=== PATIENT | female | born 1995 | race Caucasian/White ===

== ENCOUNTER 2020-07-30 20:11 | Inpatient (IN) | payer BC ==
[~2020-07-30] VITALS: Ht 144.8 cm; Wt 81.6 kg
[2020-07-30] MEDS ORDERED: NALOXONE HCL 2MG/2 ML SYRINGE ONE (20:29)
[2020-07-30] MEDS ORDERED: AMMONIA AROMATIC INHAL 0.33 ML AMP INH ONE (20:30)
[2020-07-30] MEDS ORDERED: NALOXONE HCL 2MG/2 ML SYRINGE IV ONE (20:30)
[2020-07-30 20:43] LABS: BASOPHILS # (AUTO) 0.1 (0.0-0.1); BASOPHILS % 0.2 % (0.0-1.0); EOSINOPHILS % 0.1 % (0.0-6.0); HEMATOCRIT 43.9 % (34.2-44.1); HEMOGLOBIN 13.1 g/dL (12.0-16.0); LYMPHOCYTES # (AUTO) 5.6 (1.0-3.2); LYMPHOCYTES % 14.7 % (18.0-39.1); MEAN CORPUSCULAR HEMOGLOBIN 26.4 pg (28-32); MEAN CORPUSCULAR HGB CONC 29.8 g/dL (31-35); MEAN CORPUSCULAR VOLUME 88.5 fL (81-99); MONOCYTES # (AUTO) 2.1 (0.2-0.8); MONOCYTES % 5.4 % (4.4-11.3); NEUTROPHILS # (AUTO) 28.3 (2.1-6.9); NEUTROPHILS % 73.7 % (38.7-80.0); PLATELET COUNT 562 x10e3/uL (140-360); RED BLOOD COUNT 4.96 x10e6/uL (3.6-5.1); RED CELL DISTRIBUTION WIDTH 15.4 % (11.7-14.4)
[2020-07-30 20:58] LABS: SALICYLATE < 5.0 mg/dL (0-30)
[2020-07-30] MEDS ORDERED: SODIUM CHLORIDE 0.9% 1000ML 1,000 ML IV ONE ×2 (21:00)
[2020-07-30] MEDS ORDERED: CEFTRIAXONE SOD 1 GM/50 ML BAG IV ONE (21:00)
[2020-07-30] MEDS ORDERED: PIPER-TAZ 3.375 GM 50 ML IV ONE (21:00)
[2020-07-30] MEDS ORDERED: SODIUM CHLORIDE 0.9% 1000ML 1,000 ML ONE (21:04)
[2020-07-30] MEDS ORDERED: PIPERACILLIN/TAZOBAC 3.375 GM in SODIUM CHLORIDE 0.9% 50ML 50 ML IV STA (21:04)
[2020-07-30] MEDS ORDERED: CEFTRIAXONE SOD 1 GM VIAL ONE (21:04)
[2020-07-30 21:06] LABS: AMPHETAMINES SCREEN,URINE POSITIVE (NEGATIVE); BENZODIAZEPINES SCREEN,URINE NEGATIVE (NEGATIVE); PHENCYCLIDINE SCREEN,URINE NEGATIVE (NEGATIVE)
[2020-07-30] MEDS ORDERED: PIPERACILLIN/TAZOBAC 3.375 GM VIAL ONE (21:08)
[2020-07-30 21:11] LABS: CLARITY,URINE CLOUDY (CLEAR); COLOR,URINE AMBER (YELLOW); KETONES,URINE NEGATIVE (NEGATIVE); LEUKOCYTE ESTERASE ,URINE NEGATIVE (NEGATIVE); NITRITE,URINE NEGATIVE (NEGATIVE); PROTEIN,URINE DIPSTICK >=300 (NEGATIVE); URINE UROBILINOGEN 0.2 mg/dL (0.2 - 1)
[2020-07-30 21:22] LABS: AMORPHOUS SEDIMENT,URINE MANY (FEW); BACTERIA,URINE MANY /HPF; EPITHELIAL CELLS,URINE MANY /LPF; HYALINE CASTS 0-1 (0-1); MUCUS,URINE MODERATE (RARE)
[2020-07-30 21:24] LABS: CREATINE KINASE MB 108.8 ng/mL (0-5.0)
[2020-07-30 21:29] LABS: ALBUMIN/GLOBULIN RATIO 0.9 (0.8-2.0); CALCIUM 9.3 mg/dL (8.4-10.2); CREATININE, SERUM 2.38 mg/dL (0.57-1.11)
[2020-07-30] MEDS ORDERED: SODIUM CHLORIDE 0.9% 500ML 500 ML IV ONE (21:45)
[2020-07-30] MEDS ORDERED: ASPIRIN 81 MG CHEW TAB PO STA (21:45)
[2020-07-30] MEDS ORDERED: SODIUM CHLORIDE 0.9% 1000ML 1,000 ML IV SCH (21:45)
[2020-07-30] MEDS ORDERED: ASPIRIN 300 MG SUPP PR STA (21:49)
[2020-07-30] MEDS ORDERED: LORAZEPAM INJ 2 MG/ML VIAL IV ONE (22:00)
[2020-07-30] MEDS ORDERED: ASPIRIN 300 MG SUPP PR ONE (22:00)
[2020-07-30] MEDS: ZIPRASIDONE 20 MG VIAL IM PRN (22:01)
[2020-07-30] MEDS ORDERED: ZIPRASIDONE 20 MG VIAL IM ONE (22:08)
[2020-07-30] MEDS ORDERED: LORAZEPAM INJ 2 MG/ML VIAL ONE (22:08)
[2020-07-30] MEDS: SODIUM CHLORIDE 0.9% 1000ML 1,000 ML IV SCH (23:40)
[2020-07-31] VITALS (25 sets, daily range): BP systolic 108–175; BP diastolic 79–118
[2020-07-31] MEDS ORDERED: PIPERACILLIN/TAZO 2.25 GM 50 ML IV SCH (01:00)
[2020-07-31] MEDS ORDERED: VANCOMYCIN 1GM/NS 250 ML 250 ML IV SCH (01:00)
[2020-07-31] MEDS ORDERED: VANCOMYCIN 1GM/NS 250 ML 250 ML ONE (01:09)
[2020-07-31] MEDS: PIPERACILLIN/TAZOBACTAM 2.25 GM in SODIUM CHLORIDE 0.9% 50ML 50 ML IV SCH ×2 (02:39→13:30)
[2020-07-31 05:43] LABS: BASOPHILS # (AUTO) 0.1 (0.0-0.1); BASOPHILS % 0.2 % (0.0-1.0); HEMATOCRIT 40.2 % (34.2-44.1); HEMOGLOBIN 12.7 g/dL (12.0-16.0); LYMPHOCYTES # (AUTO) 4.1 (1.0-3.2); LYMPHOCYTES % 14.3 % (18.0-39.1); MEAN CORPUSCULAR HEMOGLOBIN 26.5 pg (28-32); MEAN CORPUSCULAR HGB CONC 31.6 g/dL (31-35); MEAN CORPUSCULAR VOLUME 83.8 fL (81-99); MONOCYTES # (AUTO) 0.9 (0.2-0.8); MONOCYTES % 3.2 % (4.4-11.3); NEUTROPHILS # (AUTO) 23.1 (2.1-6.9); PLATELET COUNT 396 x10e3/uL (140-360)
[2020-07-31 06:14] LABS: ANION GAP 17.7 mmol/L (8-16); CALCIUM 7.6 mg/dL (8.4-10.2); CREATININE, SERUM 1.3 mg/dL (0.57-1.11); POTASSIUM 4.7 mmol/L (3.5-5.1)
[2020-07-31 07:39] LABS: ANISOCYTOSIS SLIGHT; LYMPHOCYTES % (MANUAL) 10 % (19-48); MONOCYTES % (MANUAL) 6 % (3.4-9.0); NEUTROPHILS % (MANUAL) 84 % (40-74); PLATELET ESTIMATE SLIGHTLY INCREASED; PLATELET MORPHOLOGY COMMENT FEW LARGE; RBC MORPHOLOGY COMMENT NORMAL
[2020-07-31] MEDS: SODIUM CHLORIDE 0.9% 1000ML 1,000 ML IV SCH ×3 (08:00→23:30)
[2020-07-31 08:18] LABS: CREATINE KINASE MB 743.9 ng/mL (0-5.0)
[2020-07-31] MEDS ORDERED: LORAZEPAM INJ 2 MG/ML VIAL IV PRN (09:00)
[2020-07-31] MEDS ORDERED: PROZAC40 MG PO (09:33)
[2020-07-31] MEDS ORDERED: METFORMIN HCL500 MG PO (09:33)
[2020-07-31] MEDS ORDERED: SUMATRIPTAN SUC25 MG PO (09:33)
[2020-07-31] MEDS ORDERED: HYDROXYZINE HCL50 MG (09:33)
[2020-07-31] MEDS ORDERED: NEURONTIN300 MG PO (09:33)
[2020-07-31] MEDS ORDERED: CRESTOR10 MG PO (09:33)
[2020-07-31] MEDS ORDERED: DEXTROSE 50% SYRINGE 50 ML IV PRN (09:45)
[2020-07-31] MEDS ORDERED: SODIUM CHLORIDE 0.9% 1000ML 1,000 ML IV ONE (09:45)
[2020-07-31] MEDS: ASPIRIN 81 MG ENTERIC COATED PO SCH (10:13)
[2020-07-31] MEDS: FAMOTIDINE 20 MG/2 ML VIAL IV SCH ×2 (10:13→17:48)
[2020-07-31] MEDS: INSULIN REGULAR, HUMAN 100 UNIT/1 ML 3ML VIAL SQ SCH ×3 (11:24→21:20)
[2020-07-31] MEDS: LORAZEPAM INJ 2 MG/ML VIAL IV PRN (13:41)
[2020-07-31 14:44] LABS: BASOPHILS # (AUTO) 0.1 (0.0-0.1); BASOPHILS % 0.3 % (0.0-1.0); EOSINOPHILS % 0.1 % (0.0-6.0); HEMATOCRIT 38.6 % (34.2-44.1); HEMOGLOBIN 12.1 g/dL (12.0-16.0); LYMPHOCYTES # (AUTO) 2.9 (1.0-3.2); LYMPHOCYTES % 15.2 % (18.0-39.1); MEAN CORPUSCULAR HEMOGLOBIN 26.3 pg (28-32); MEAN CORPUSCULAR HGB CONC 31.3 g/dL (31-35); MEAN CORPUSCULAR VOLUME 83.9 fL (81-99); MONOCYTES # (AUTO) 0.6 (0.2-0.8); MONOCYTES % 3.4 % (4.4-11.3); NEUTROPHILS # (AUTO) 15.1 (2.1-6.9); NEUTROPHILS % 80.3 % (38.7-80.0); PLATELET COUNT 384 x10e3/uL (140-360); RED CELL DISTRIBUTION WIDTH 15.3 % (11.7-14.4)
[2020-07-31 15:36] LABS: ANION GAP 15.7 mmol/L (8-16); BLOOD UREA NITROGEN 19 mg/dL (7-26); CARBON DIOXIDE 17 mmol/L (22-29); CHLORIDE 113 mmol/L (98-107); CREATININE, SERUM 0.94 mg/dL (0.57-1.11); POTASSIUM 3.7 mmol/L (3.5-5.1); SODIUM 142 mmol/L (136-145)
[2020-07-31 15:37] LABS: BUN/CREATININE RATIO 20 (6-25); CALCIUM 7.5 mg/dL (8.4-10.2); EST GLOMERULAR FILTRATION RATE > 60 ML/MIN (60-); GLUCOSE 109 mg/dL (74-118)
[2020-07-31 15:46] LABS: CREATINE KINASE MB 504.7 ng/mL (0-5.0)
[2020-07-31] MEDS: VANCOMYCIN 1GM/NS 250 ML 250 ML IV SCH (18:06)
[2020-07-31] MEDS: CEFEPIME 2 GM/NS 0.9% 100 ML 100 ML IV SCH (19:56)
[2020-07-31 22:27] LABS: CREATINE KINASE MB 223.4 ng/mL (0-5.0)
[2020-07-31 22:41] LABS: ANION GAP 13.7 mmol/L (8-16); BLOOD UREA NITROGEN 16 mg/dL (7-26); BUN/CREATININE RATIO 19 (6-25); CALCIUM 7.6 mg/dL (8.4-10.2); CARBON DIOXIDE 19 mmol/L (22-29); CHLORIDE 111 mmol/L (98-107); CREATININE, SERUM 0.84 mg/dL (0.57-1.11); EST GLOMERULAR FILTRATION RATE > 60 ML/MIN (60-); GLUCOSE 122 mg/dL (74-118); POTASSIUM 3.7 mmol/L (3.5-5.1); SODIUM 140 mmol/L (136-145)
[2020-07-31] MEDS: ZIPRASIDONE 20 MG VIAL IM PRN (23:08)
[2020-08-01] VITALS (24 sets, daily range): BP systolic 122–194; BP diastolic 60–141
[2020-08-01] MEDS: SODIUM CHLORIDE 0.9% 1000ML 1,000 ML IV SCH ×4 (02:25→21:03)
[2020-08-01] MEDS: LORAZEPAM INJ 2 MG/ML VIAL IV PRN ×2 (03:51→19:21)
[2020-08-01] MEDS: CEFEPIME 2 GM/NS 0.9% 100 ML 100 ML IV SCH ×3 (03:54→20:04)
[2020-08-01 04:42] LABS: BASOPHILS % 0.2 % (0.0-1.0); EOSINOPHILS # (AUTO) 0.2 (0.0-0.4); EOSINOPHILS % 0.9 % (0.0-6.0); HEMATOCRIT 34.9 % (34.2-44.1); HEMOGLOBIN 11.1 g/dL (12.0-16.0); LYMPHOCYTES # (AUTO) 3.7 (1.0-3.2); MEAN CORPUSCULAR HEMOGLOBIN 26.4 pg (28-32); MEAN CORPUSCULAR HGB CONC 31.8 g/dL (31-35); MEAN CORPUSCULAR VOLUME 83.1 fL (81-99); MONOCYTES # (AUTO) 0.7 (0.2-0.8); MONOCYTES % 3.7 % (4.4-11.3); NEUTROPHILS # (AUTO) 12.8 (2.1-6.9); NEUTROPHILS % 73.6 % (38.7-80.0); PLATELET COUNT 295 x10e3/uL (140-360); RED CELL DISTRIBUTION WIDTH 15.2 % (11.7-14.4)
[2020-08-01 05:13] LABS: ALANINE AMINOTRANSFERASE 1556 IU/L (0-55); ALBUMIN 2.6 g/dL (3.5-5.0); ALBUMIN/GLOBULIN RATIO 0.8 (0.8-2.0); ALKALINE PHOSPHATASE 88 IU/L (40-150); ANION GAP 15.5 mmol/L (8-16); BLOOD UREA NITROGEN 12 mg/dL (7-26); BUN/CREATININE RATIO 15 (6-25); CALCIUM 7.7 mg/dL (8.4-10.2); CARBON DIOXIDE 19 mmol/L (22-29); CHLORIDE 110 mmol/L (98-107); CREATININE, SERUM 0.78 mg/dL (0.57-1.11); EST GLOMERULAR FILTRATION RATE > 60 ML/MIN (60-); GLUCOSE 103 mg/dL (74-118); POTASSIUM 3.5 mmol/L (3.5-5.1); SODIUM 141 mmol/L (136-145)
[2020-08-01 05:35] LABS: MAGNESIUM 1.9 MG/DL (1.3-2.1); PHOSPHORUS 1.2 MG/DL (2.3-4.7)
[2020-08-01 05:42] LABS: THYROID STIMULATING HORMONE 0.244 uIU/mL (0.350-4.940)
[2020-08-01] MEDS: VANCOMYCIN 1GM/NS 250 ML 250 ML IV SCH ×2 (05:54→18:22)
[2020-08-01] MEDS: INSULIN REGULAR, HUMAN 100 UNIT/1 ML 3ML VIAL SQ SCH ×4 (07:30→20:01)
[2020-08-01] MEDS ORDERED: LABETALOL HCL 5 MG/ML 20ML VIAL IV ONE (09:00)
[2020-08-01] MEDS: ASPIRIN 81 MG ENTERIC COATED PO SCH (09:00)
[2020-08-01] MEDS: FAMOTIDINE 20 MG/2 ML VIAL IV SCH ×2 (09:31→18:15)
[2020-08-01] MEDS: HYDROMORPHONE 1MG/1ML INJ IV PRN ×2 (11:53→21:03)
[2020-08-01] MEDS ORDERED: DIPHENHYDRAMINE HCL INJ 50 MG/ML VIAL IV PRN (14:00)
[2020-08-01] MEDS ORDERED: DIPHENHYDRAMINE HCL INJ 50 MG/ML VIAL ONE (14:18)
[2020-08-01 17:47] LABS: ANION GAP 15.6 mmol/L (8-16); BLOOD UREA NITROGEN 9 mg/dL (7-26); BUN/CREATININE RATIO 13 (6-25); CARBON DIOXIDE 21 mmol/L (22-29); CHLORIDE 109 mmol/L (98-107); CREATININE, SERUM 0.68 mg/dL (0.57-1.11); EST GLOMERULAR FILTRATION RATE > 60 ML/MIN (60-); GLUCOSE 82 mg/dL (74-118); POTASSIUM 3.6 mmol/L (3.5-5.1); SODIUM 142 mmol/L (136-145)
[2020-08-01] MEDS: HYDRALAZINE HCL 20 MG/ML VIAL IV PRN (18:21)
[2020-08-02] VITALS (32 sets, daily range): BP systolic 87–178; BP diastolic 15–117
[2020-08-02] MEDS: LORAZEPAM INJ 2 MG/ML VIAL IV PRN ×2 (00:08→06:23)
[2020-08-02] MEDS: HYDRALAZINE HCL 20 MG/ML VIAL IV PRN ×2 (01:07→06:05)
[2020-08-02] MEDS: ONDANSETRON HCL INJ 2MG/ML 2ML 2 MG/ML VIAL IV PRN (01:21)
[2020-08-02] MEDS: CEFEPIME 2 GM/NS 0.9% 100 ML 100 ML IV SCH ×2 (05:00→11:38)
[2020-08-02 05:03] LABS: ANION GAP 14.1 mmol/L (8-16); BLOOD UREA NITROGEN 7 mg/dL (7-26); BUN/CREATININE RATIO 11 (6-25); CALCIUM 8.2 mg/dL (8.4-10.2); CARBON DIOXIDE 23 mmol/L (22-29); CHLORIDE 108 mmol/L (98-107); CREATININE, SERUM 0.64 mg/dL (0.57-1.11); EST GLOMERULAR FILTRATION RATE > 60 ML/MIN (60-); GLUCOSE 100 mg/dL (74-118); POTASSIUM 3.1 mmol/L (3.5-5.1); SODIUM 142 mmol/L (136-145)
[2020-08-02] MEDS: VANCOMYCIN 1GM/NS 250 ML 250 ML IV SCH (06:02)
[2020-08-02] MEDS: INSULIN REGULAR, HUMAN 100 UNIT/1 ML 3ML VIAL SQ SCH ×4 (06:19→21:00)
[2020-08-02] MEDS: SODIUM CHLORIDE 0.9% 1000ML 1,000 ML IV SCH ×2 (06:28→13:26)
[2020-08-02] MEDS: ASPIRIN 81 MG ENTERIC COATED PO SCH (08:39)
[2020-08-02] MEDS: FAMOTIDINE 20 MG/2 ML VIAL IV SCH ×2 (08:39→17:16)
[2020-08-02] MEDS ORDERED: POTASSIUM CHLORIDE 20MEQ/100ML 200 ML IV ONE ×2 (09:30→17:00)
[2020-08-02 16:25] LABS: ANION GAP 12.2 mmol/L (8-16); BLOOD UREA NITROGEN 9 mg/dL (7-26); BUN/CREATININE RATIO 15 (6-25); CALCIUM 8.2 mg/dL (8.4-10.2); CARBON DIOXIDE 23 mmol/L (22-29); CHLORIDE 109 mmol/L (98-107); CREATININE, SERUM 0.62 mg/dL (0.57-1.11); EST GLOMERULAR FILTRATION RATE > 60 ML/MIN (60-); GLUCOSE 103 mg/dL (74-118); POTASSIUM 3.2 mmol/L (3.5-5.1); SODIUM 141 mmol/L (136-145)
[2020-08-02] MEDS: NICOTINE 21 MG/EA PATCH TOP SCH (17:44)
[2020-08-02] MEDS: DIPHENHYDRAMINE HCL INJ 50 MG/ML VIAL IV PRN (22:35)
[2020-08-03] VITALS (17 sets, daily range): BP systolic 121–171; BP diastolic 84–116
[2020-08-03 03:05] LABS: ANION GAP 11.6 mmol/L (8-16); BLOOD UREA NITROGEN 7 mg/dL (7-26); BUN/CREATININE RATIO 13 (6-25); CALCIUM 7.2 mg/dL (8.4-10.2); CARBON DIOXIDE 20 mmol/L (22-29); CHLORIDE 112 mmol/L (98-107); CREATININE, SERUM 0.55 mg/dL (0.57-1.11); EST GLOMERULAR FILTRATION RATE > 60 ML/MIN (60-); GLUCOSE 151 mg/dL (74-118); SODIUM 141 mmol/L (136-145)
[2020-08-03 03:06] LABS: POTASSIUM 2.6 mmol/L (3.5-5.1)
[2020-08-03] MEDS: SODIUM CHLORIDE 0.9% 1000ML 1,000 ML IV SCH ×2 (04:00→17:23)
[2020-08-03] MEDS: HYDROMORPHONE 1MG/1ML INJ IV PRN ×3 (06:00→22:50)
[2020-08-03] MEDS ORDERED: POTASSIUM CHLORIDE 20MEQ/100ML 200 ML IV ONE (07:15)
[2020-08-03] MEDS: INSULIN REGULAR, HUMAN 100 UNIT/1 ML 3ML VIAL SQ SCH ×4 (07:30→21:00)
[2020-08-03] MEDS: FAMOTIDINE 20 MG/2 ML VIAL IV SCH ×2 (09:28→17:23)
[2020-08-03] MEDS: ASPIRIN 81 MG ENTERIC COATED PO SCH (09:29)
[2020-08-03] MEDS: NICOTINE 21 MG/EA PATCH TOP SCH (09:29)
[2020-08-03] MEDS ORDERED: POTASSIUM CHLORIDE 20MEQ/100ML 100 ML IV ONE (12:00)
[2020-08-04] VITALS (7 sets, daily range): BP systolic 130–171; BP diastolic 103–138
[2020-08-04] MEDS: HYDROMORPHONE 1MG/1ML INJ IV PRN ×5 (03:00→16:37)
[2020-08-04 06:15] LABS: BASOPHILS # (AUTO) 0.1 (0.0-0.1); BASOPHILS % 0.2 % (0.0-1.0); EOSINOPHILS # (AUTO) 0.4 (0.0-0.4); EOSINOPHILS % 1.7 % (0.0-6.0); HEMATOCRIT 31.8 % (34.2-44.1); HEMOGLOBIN 10.4 g/dL (12.0-16.0); LYMPHOCYTES # (AUTO) 4.9 (1.0-3.2); LYMPHOCYTES % 23.5 % (18.0-39.1); MEAN CORPUSCULAR HEMOGLOBIN 26.5 pg (28-32); MEAN CORPUSCULAR HGB CONC 32.7 g/dL (31-35); MEAN CORPUSCULAR VOLUME 81.1 fL (81-99); MONOCYTES # (AUTO) 1.8 (0.2-0.8); MONOCYTES % 8.7 % (4.4-11.3); NEUTROPHILS # (AUTO) 13.4 (2.1-6.9); NEUTROPHILS % 64.5 % (38.7-80.0); PLATELET COUNT 333 x10e3/uL (140-360); RED BLOOD COUNT 3.92 x10e6/uL (3.6-5.1); RED CELL DISTRIBUTION WIDTH 15.4 % (11.7-14.4)
[2020-08-04 06:33] LABS: ANION GAP 10.1 mmol/L (8-16); BLOOD UREA NITROGEN 5 mg/dL (7-26); BUN/CREATININE RATIO 9 (6-25); CALCIUM 8.3 mg/dL (8.4-10.2); CARBON DIOXIDE 28 mmol/L (22-29); CHLORIDE 106 mmol/L (98-107); CREATININE, SERUM 0.58 mg/dL (0.57-1.11); EST GLOMERULAR FILTRATION RATE > 60 ML/MIN (60-); GLUCOSE 117 mg/dL (74-118); POTASSIUM 3.1 mmol/L (3.5-5.1); SODIUM 141 mmol/L (136-145)
[2020-08-04 07:10] LABS: CREATINE KINASE 19289 IU/L (29-168)
[2020-08-04] MEDS: SODIUM CHLORIDE 0.9% 1000ML 1,000 ML IV SCH ×2 (07:15→22:17)
[2020-08-04 07:29] LABS: MAGNESIUM 1.7 MG/DL (1.3-2.1); PHOSPHORUS 1.6 MG/DL (2.3-4.7)
[2020-08-04] MEDS: INSULIN REGULAR, HUMAN 100 UNIT/1 ML 3ML VIAL SQ SCH ×4 (07:30→21:00)
[2020-08-04] MEDS: ASPIRIN 81 MG ENTERIC COATED PO SCH (08:32)
[2020-08-04] MEDS: FAMOTIDINE 20 MG/2 ML VIAL IV SCH ×2 (08:32→16:56)
[2020-08-04] MEDS: FLUOXETINE HCL 20 MG CAP PO SCH (08:33)
[2020-08-04] MEDS: NICOTINE 21 MG/EA PATCH TOP SCH (08:33)
[2020-08-04] MEDS ORDERED: POTASSIUM CHLORIDE 10MEQ EA PO ONE (09:00)
[2020-08-04] MEDS ORDERED: CLINDAMYCIN 300MG 50 ML IV SCH ×2 (10:00→12:00)
[2020-08-04] MEDS: ONDANSETRON HCL INJ 2MG/ML 2ML 2 MG/ML VIAL IV PRN (10:03)
[2020-08-04] MEDS ORDERED: FLUCONAZOLE 100 MG TAB PO ONE (10:15)
[2020-08-04 11:01] LABS: COLOR,URINE YELLOW (YELLOW); KETONES,URINE NEGATIVE (NEGATIVE); LEUKOCYTE ESTERASE ,URINE NEGATIVE (NEGATIVE); NITRITE,URINE NEGATIVE (NEGATIVE); PROTEIN,URINE DIPSTICK NEGATIVE (NEGATIVE); URINE UROBILINOGEN 0.2 mg/dL (0.2 - 1)
[2020-08-04 11:09] LABS: BACTERIA,URINE MODERATE /HPF; CLARITY,URINE CLOUDY (CLEAR); EPITHELIAL CELLS,URINE FEW /LPF; RBC,URINE >50 /HPF (0-5); WBC,URINE (MAN) 21-50 /HPF (0-5)
[2020-08-04] MEDS ORDERED: CEFTRIAXONE SOD 1 GM/50 ML BAG IV SCH (13:45)
[2020-08-04] MEDS: CEFTRIAXONE SOD 1 GM in SODIUM CHLORIDE 0.9% 50ML 50 ML IV SCH ×2 (14:06→22:04)
[2020-08-04] MEDS ORDERED: MAGNESIUM SULFATE 2GM/50ML 50 ML IV ONE (15:00)
[2020-08-04] MEDS ORDERED: POTASSIUM PHOSPHATE 20 MM in SODIUM CHLORIDE 0.9% 250ML 250 ML IV ONE (16:00)
[2020-08-04] MEDS ORDERED: CEFTRIAXONE SOD 1 GM VIAL ONE (22:04)
[2020-08-04] MEDS ORDERED: SODIUM CHLORIDE 0.9% 50ML 50 ML ONE (22:07)
[2020-08-05] VITALS (8 sets, daily range): BP systolic 121–169; BP diastolic 71–118
[2020-08-05] MEDS: HYDROMORPHONE 1MG/1ML INJ IV PRN ×5 (01:05→22:38)
[2020-08-05 05:50] LABS: BASOPHILS # (AUTO) 0.1 (0.0-0.1); BASOPHILS % 0.3 % (0.0-1.0); EOSINOPHILS # (AUTO) 0.4 (0.0-0.4); EOSINOPHILS % 1.6 % (0.0-6.0); HEMATOCRIT 31.8 % (34.2-44.1); HEMOGLOBIN 10.4 g/dL (12.0-16.0); LYMPHOCYTES # (AUTO) 6.8 (1.0-3.2); LYMPHOCYTES % 29.4 % (18.0-39.1); MEAN CORPUSCULAR HEMOGLOBIN 26.5 pg (28-32); MEAN CORPUSCULAR HGB CONC 32.7 g/dL (31-35); MEAN CORPUSCULAR VOLUME 80.9 fL (81-99); MONOCYTES # (AUTO) 1.9 (0.2-0.8); MONOCYTES % 8.2 % (4.4-11.3); NEUTROPHILS # (AUTO) 13.7 (2.1-6.9); NEUTROPHILS % 59.3 % (38.7-80.0); PLATELET COUNT 377 x10e3/uL (140-360); RED BLOOD COUNT 3.93 x10e6/uL (3.6-5.1); RED CELL DISTRIBUTION WIDTH 15.1 % (11.7-14.4)
[2020-08-05 06:11] LABS: ANION GAP 14.6 mmol/L (8-16); BLOOD UREA NITROGEN 6 mg/dL (7-26); BUN/CREATININE RATIO 10 (6-25); CALCIUM 8.6 mg/dL (8.4-10.2); CARBON DIOXIDE 27 mmol/L (22-29); CHLORIDE 104 mmol/L (98-107); EST GLOMERULAR FILTRATION RATE > 60 ML/MIN (60-); GLUCOSE 104 mg/dL (74-118); POTASSIUM 3.6 mmol/L (3.5-5.1); SODIUM 142 mmol/L (136-145)
[2020-08-05 06:44] LABS: CREATINE KINASE 12692 IU/L (29-168)
[2020-08-05 06:46] LABS: MAGNESIUM 1.9 MG/DL (1.3-2.1); PHOSPHORUS 4.4 MG/DL (2.3-4.7)
[2020-08-05 08:20] LABS: ALBUMIN 2.5 g/dL (3.5-5.0); BILIRUBIN,DIRECT 0.2 mg/dL (0.0-0.5)
[2020-08-05] MEDS ORDERED: CEFTRIAXONE SOD 1 GM VIAL ONE (08:23)
[2020-08-05] MEDS: INSULIN REGULAR, HUMAN 100 UNIT/1 ML 3ML VIAL SQ SCH ×4 (08:24→21:00)
[2020-08-05 08:35] LABS: EOSINOPHILS % (MANUAL) 3 % (0-7); LYMPHOCYTES % (MANUAL) 41 % (19-48); METAMYELOCYTES % (MANUAL) 1 % (0-0); MONOCYTES % (MANUAL) 2 % (3.4-9.0); NEUTROPHILS % (MANUAL) 53 % (40-74); PLATELET ESTIMATE ADEQUATE; PLATELET MORPHOLOGY COMMENT FEW LARGE; RBC MORPHOLOGY COMMENT NORMAL; SMUDGE CELLS FEW
[2020-08-05] MEDS ORDERED: SODIUM CHLORIDE 0.9% 50ML 50 ML ONE (08:35)
[2020-08-05] MEDS: CEFTRIAXONE SOD 1 GM in SODIUM CHLORIDE 0.9% 50ML 50 ML IV SCH ×2 (08:41→21:59)
[2020-08-05] MEDS: NICOTINE 21 MG/EA PATCH TOP SCH (08:41)
[2020-08-05] MEDS: FLUOXETINE HCL 20 MG CAP PO SCH (08:41)
[2020-08-05] MEDS: FLUCONAZOLE 100 MG TAB PO SCH (08:41)
[2020-08-05] MEDS: ASPIRIN 81 MG ENTERIC COATED PO SCH (08:41)
[2020-08-05] MEDS: FAMOTIDINE 20 MG/2 ML VIAL IV SCH ×2 (08:41→17:09)
[2020-08-05] MEDS: HYDRALAZINE HCL 20 MG/ML VIAL IV PRN (08:48)
[2020-08-05] MEDS: ACETAMINOPHEN 325 MG TAB PO PRN ×2 (11:00→17:10)
[2020-08-05] MEDS ORDERED: BISACODYL 10 MG SUPP PR ONE (16:45)
[2020-08-05] MEDS ORDERED: MAGNESIUM HYDROXIDE 30 ML UDC PO ONE (16:45)
[2020-08-05] MEDS ORDERED: GADOBENATE DIMEGLUMINE 1 ML IV ONE (18:24)
[2020-08-05] MEDS: LORAZEPAM INJ 2 MG/ML VIAL IV PRN (18:48)
[2020-08-05] MEDS: DIPHENHYDRAMINE HCL INJ 50 MG/ML VIAL IV PRN (21:59)
[2020-08-05] MEDS: METHYLPREDNISOLONE SOD SUCC 40 MG/ML VIAL 1ML IV SCH (21:59)
[2020-08-06] VITALS (12 sets, daily range): BP systolic 135–174; BP diastolic 90–111
[2020-08-06] MEDS: HYDROMORPHONE 1MG/1ML INJ IV PRN ×5 (02:54→21:16)
[2020-08-06] MEDS: SODIUM CHLORIDE 0.9% 1000ML 1,000 ML IV SCH ×2 (06:43→12:40)
[2020-08-06] MEDS: METHYLPREDNISOLONE SOD SUCC 40 MG/ML VIAL 1ML IV SCH ×3 (06:43→21:16)
[2020-08-06 07:11] LABS: ANION GAP 10.1 mmol/L (8-16); BLOOD UREA NITROGEN 7 mg/dL (7-26); BUN/CREATININE RATIO 15 (6-25); CARBON DIOXIDE 21 mmol/L (22-29); CHLORIDE 114 mmol/L (98-107); CREATININE, SERUM 0.47 mg/dL (0.57-1.11); EST GLOMERULAR FILTRATION RATE > 60 ML/MIN (60-); GLUCOSE 120 mg/dL (74-118); POTASSIUM 3.1 mmol/L (3.5-5.1); SODIUM 142 mmol/L (136-145)
[2020-08-06 07:14] LABS: CALCIUM 6.9 mg/dL (8.4-10.2)
[2020-08-06] MEDS: INSULIN REGULAR, HUMAN 100 UNIT/1 ML 3ML VIAL SQ SCH ×4 (07:30→21:23)
[2020-08-06 07:31] LABS: CREATINE KINASE 6155 IU/L (29-168)
[2020-08-06] MEDS: NICOTINE 21 MG/EA PATCH TOP SCH (08:24)
[2020-08-06] MEDS: FLUOXETINE HCL 20 MG CAP PO SCH (08:24)
[2020-08-06] MEDS: ASPIRIN 81 MG ENTERIC COATED PO SCH (08:24)
[2020-08-06] MEDS: FAMOTIDINE 20 MG/2 ML VIAL IV SCH ×2 (08:24→16:11)
[2020-08-06] MEDS: FLUCONAZOLE 100 MG TAB PO SCH (08:24)
[2020-08-06] MEDS: HYDRALAZINE HCL 20 MG/ML VIAL IV PRN (08:55)
[2020-08-06] MEDS ORDERED: POTASSIUM CHLORIDE 20MEQ/100ML 200 ML IV ONE (09:00)
[2020-08-06] MEDS ORDERED: HYDRALAZINE HCL 20 MG/ML VIAL IV PRN (09:00)
[2020-08-06] MEDS: LORAZEPAM INJ 2 MG/ML VIAL IV PRN (09:13)
[2020-08-06] MEDS ORDERED: BUPIVACAINE HCL 0.5% INJ 30 ML VIAL INJ ONE (10:17)
[2020-08-06] MEDS ORDERED: LIDOCAINE 1% W/EPINEPHRINE 20 ML VIAL ONE (10:17)
[2020-08-06] MEDS ORDERED: MUPIROCIN 2% OINT 22 GM TUBE ONE (10:17)
[2020-08-06] MEDS ORDERED: ACETAMINOPHEN 1000 MG/100 ML IV PRN (11:45)
[2020-08-06] MEDS ORDERED: FENTANYL CITRATE/PF 100MCG/2 ML INJ ONE (12:43)
[2020-08-06] MEDS ORDERED: MIDAZOLAM HCL 2 MG/2 ML VIAL ONE (12:43)
[2020-08-06] MEDS ORDERED: CEFEPIME HCL 1 GM VIAL IV SCH (14:00)
[2020-08-06] MEDS: CLINDAMYCIN PHOS 900MG/ 50ML 50 ML IV SCH ×2 (15:18→21:55)
[2020-08-06] MEDS: CEFEPIME HCL 1GM 1 GM in SODIUM CHLORIDE 0.9% 50ML 50 ML IV SCH ×2 (15:57→21:16)
[2020-08-06] MEDS: DIPHENHYDRAMINE HCL INJ 50 MG/ML VIAL IV PRN (19:49)
[2020-08-07 00:28] VITALS: BP 134/93
[2020-08-07] MEDS: HYDROCODONE/APAP 7.5MG-325MG 1 EA TAB PO PRN ×2 (01:46→12:45)
[2020-08-07] MEDS: HYDROMORPHONE 1MG/1ML INJ IV PRN ×5 (03:17→19:58)
[2020-08-07] MEDS: SODIUM CHLORIDE 0.9% 1000ML 1,000 ML IV SCH ×3 (03:18→19:55)
[2020-08-07 04:08] VITALS: BP 162/94
[2020-08-07 05:36] LABS: ANION GAP 12.2 mmol/L (8-16); BLOOD UREA NITROGEN 13 mg/dL (7-26); BUN/CREATININE RATIO 21 (6-25); CALCIUM 8.5 mg/dL (8.4-10.2); CARBON DIOXIDE 25 mmol/L (22-29); CHLORIDE 105 mmol/L (98-107); CREATINE KINASE 2959 IU/L (29-168); CREATININE, SERUM 0.63 mg/dL (0.57-1.11); EST GLOMERULAR FILTRATION RATE > 60 ML/MIN (60-); GLUCOSE 169 mg/dL (74-118); POTASSIUM 4.2 mmol/L (3.5-5.1); SODIUM 138 mmol/L (136-145)
[2020-08-07] MEDS: METHYLPREDNISOLONE SOD SUCC 40 MG/ML VIAL 1ML IV SCH ×2 (06:18→14:47)
[2020-08-07] MEDS: CLINDAMYCIN PHOS 900MG/ 50ML 50 ML IV SCH ×3 (06:18→21:41)
[2020-08-07] MEDS: CEFEPIME HCL 1GM 1 GM in SODIUM CHLORIDE 0.9% 50ML 50 ML IV SCH ×3 (06:47→22:35)
[2020-08-07 06:54] LABS: BASOPHILS # (AUTO) 0.1 (0.0-0.1); BASOPHILS % 0.2 % (0.0-1.0); HEMATOCRIT 28.9 % (34.2-44.1); HEMOGLOBIN 9.2 g/dL (12.0-16.0); LYMPHOCYTES # (AUTO) 3.6 (1.0-3.2); LYMPHOCYTES % 13.4 % (18.0-39.1); MEAN CORPUSCULAR HEMOGLOBIN 26.4 pg (28-32); MEAN CORPUSCULAR HGB CONC 31.8 g/dL (31-35); MEAN CORPUSCULAR VOLUME 82.8 fL (81-99); MONOCYTES # (AUTO) 1.6 (0.2-0.8); MONOCYTES % 5.9 % (4.4-11.3); NEUTROPHILS # (AUTO) 21.1 (2.1-6.9); NEUTROPHILS % 79.5 % (38.7-80.0); PLATELET COUNT 459 x10e3/uL (140-360); RED BLOOD COUNT 3.49 x10e6/uL (3.6-5.1); RED CELL DISTRIBUTION WIDTH 15.4 % (11.7-14.4)
[2020-08-07 07:07] LABS: ALANINE AMINOTRANSFERASE 252 IU/L (0-55); ALBUMIN 2.6 g/dL (3.5-5.0); ALKALINE PHOSPHATASE 74 IU/L (40-150); BILIRUBIN,DIRECT 0.2 mg/dL (0.0-0.5)
[2020-08-07] MEDS: INSULIN REGULAR, HUMAN 100 UNIT/1 ML 3ML VIAL SQ SCH ×4 (07:10→21:44)
[2020-08-07 07:37] VITALS: BP 160/92
[2020-08-07 07:38] VITALS: BP 160/92
[2020-08-07 08:00] LABS: LYMPHOCYTES % (MANUAL) 13 % (19-48); MONOCYTES % (MANUAL) 4 % (3.4-9.0); NEUTROPHILS % (MANUAL) 83 % (40-74)
[2020-08-07 08:01] LABS: ANISOCYTOSIS SLIGHT; PLATELET ESTIMATE SLIGHTLY INCREASED; PLATELET MORPHOLOGY COMMENT NORMAL; POLYCHROMASIA FEW; RBC MORPHOLOGY COMMENT NORMAL
[2020-08-07] MEDS: FAMOTIDINE 20 MG/2 ML VIAL IV SCH ×2 (08:04→17:20)
[2020-08-07] MEDS: NICOTINE 21 MG/EA PATCH TOP SCH (08:04)
[2020-08-07] MEDS: FLUOXETINE HCL 20 MG CAP PO SCH (08:04)
[2020-08-07] MEDS: FLUCONAZOLE 100 MG TAB PO SCH (08:04)
[2020-08-07] MEDS: DIPHENHYDRAMINE HCL INJ 50 MG/ML VIAL IV PRN ×3 (08:07→18:05)
[2020-08-07] MEDS ORDERED: LISINOPRIL 2.5 MG TAB PO SCH (09:00)
[2020-08-07] MEDS: LISINOPRIL 10 MG TAB PO SCH ×2 (09:00→17:21)
[2020-08-07] MEDS: LORAZEPAM INJ 2 MG/ML VIAL IV PRN ×2 (12:45→16:46)
[2020-08-07 16:12] VITALS: BP 145/90
[2020-08-07] MEDS ORDERED: LORAZEPAM INJ 2 MG/ML VIAL IV PRN (18:00)
[2020-08-07 20:00] VITALS: BP_SYST 160; BP_SYST 169; BP_DIAS 83
[2020-08-08] VITALS (8 sets, daily range): BP systolic 126–153; BP diastolic 86–98
[2020-08-08 07:01] LABS: BASOPHILS # (AUTO) 0.1 (0.0-0.1); BASOPHILS % 0.2 % (0.0-1.0); HEMOGLOBIN 9.4 g/dL (12.0-16.0); LYMPHOCYTES # (AUTO) 8.9 (1.0-3.2); LYMPHOCYTES % 29.7 % (18.0-39.1); MEAN CORPUSCULAR HEMOGLOBIN 26.6 pg (28-32); MEAN CORPUSCULAR HGB CONC 32.4 g/dL (31-35); MEAN CORPUSCULAR VOLUME 81.9 fL (81-99); MONOCYTES # (AUTO) 3.2 (0.2-0.8); MONOCYTES % 10.7 % (4.4-11.3); PLATELET COUNT 525 x10e3/uL (140-360); RED BLOOD COUNT 3.54 x10e6/uL (3.6-5.1); RED CELL DISTRIBUTION WIDTH 15.3 % (11.7-14.4)
[2020-08-08] MEDS: INSULIN REGULAR, HUMAN 100 UNIT/1 ML 3ML VIAL SQ SCH ×4 (07:16→20:50)
[2020-08-08 07:22] LABS: ALANINE AMINOTRANSFERASE 188 IU/L (0-55); ALBUMIN 2.7 g/dL (3.5-5.0); ALBUMIN/GLOBULIN RATIO 0.8 (0.8-2.0); ALKALINE PHOSPHATASE 65 IU/L (40-150); ANION GAP 14.2 mmol/L (8-16); BLOOD UREA NITROGEN 15 mg/dL (7-26); BUN/CREATININE RATIO 23 (6-25); CALCIUM 8.9 mg/dL (8.4-10.2); CARBON DIOXIDE 25 mmol/L (22-29); CHLORIDE 105 mmol/L (98-107); CREATININE, SERUM 0.64 mg/dL (0.57-1.11); EST GLOMERULAR FILTRATION RATE > 60 ML/MIN (60-); GLUCOSE 87 mg/dL (74-118); POTASSIUM 4.2 mmol/L (3.5-5.1); SODIUM 140 mmol/L (136-145)
[2020-08-08 07:37] LABS: ANISOCYTOSIS SLIGHT; EOSINOPHILS % (MANUAL) 1 % (0-7); LYMPHOCYTES % (MANUAL) 35 % (19-48); MONOCYTES % (MANUAL) 5 % (3.4-9.0); MYELOCYTES % (MANUAL) 2 % (0-0); NEUTROPHILS % (MANUAL) 57 % (40-74); PLATELET ESTIMATE MODERATELY INCREASED; PLATELET MORPHOLOGY COMMENT NORMAL; RBC MORPHOLOGY COMMENT NORMAL
[2020-08-08] MEDS: FLUOXETINE HCL 20 MG CAP PO SCH (08:25)
[2020-08-08] MEDS: NICOTINE 21 MG/EA PATCH TOP SCH (08:25)
[2020-08-08] MEDS: LISINOPRIL 10 MG TAB PO SCH ×2 (08:25→16:00)
[2020-08-08] MEDS: FAMOTIDINE 20 MG/2 ML VIAL IV SCH (08:25)
[2020-08-08] MEDS: FLUCONAZOLE 100 MG TAB PO SCH (08:25)
[2020-08-08] MEDS: DIPHENHYDRAMINE HCL INJ 50 MG/ML VIAL IV PRN ×3 (08:30→21:44)
[2020-08-08] MEDS: HYDROCODONE/APAP 7.5MG-325MG 1 EA TAB PO PRN ×2 (08:30→21:43)
[2020-08-08] MEDS: HYDROMORPHONE 1MG/1ML INJ IV PRN ×4 (10:15→20:50)
[2020-08-08] MEDS: SODIUM CHLORIDE 0.9% 1000ML 1,000 ML IV SCH ×2 (11:15→23:33)
[2020-08-08] MEDS: CEFEPIME HCL 1GM 1 GM in SODIUM CHLORIDE 0.9% 50ML 50 ML IV SCH ×2 (13:40→21:44)
[2020-08-08] MEDS: CLINDAMYCIN PHOS 900MG/ 50ML 50 ML IV SCH ×2 (13:52→21:44)
[2020-08-08] MEDS: FAMOTIDINE 20 MG TAB PO SCH (15:36)
[2020-08-08] MEDS ORDERED: LIDOCAINE HCL 2% LOCAL INJ 5 ML SDV VIAL INJ ONE (16:45)
[2020-08-08] MEDS ORDERED: ONDANSETRON HCL INJ 2MG/ML 2ML 2 MG/ML VIAL ONE (16:45)
[2020-08-08] MEDS ORDERED: PROPOFOL IV EMULSION 10 MG/ML 20 ML VIAL ONE (16:45)
[2020-08-08] MEDS ORDERED: POVIDONE IODINE 0.05% 0.05 % ML PO ONE (16:45)
[2020-08-08] MEDS ORDERED: SEVOFLURANE INHAL SOLN 250 ML PEN BTL ONE (16:45)
[2020-08-09] VITALS (10 sets, daily range): BP systolic 127–156; BP diastolic 80–98
[2020-08-09] MEDS: HYDROMORPHONE 1MG/1ML INJ IV PRN ×6 (00:15→21:25)
[2020-08-09] MEDS: SODIUM CHLORIDE 0.9% 1000ML 1,000 ML IV SCH (02:53)
[2020-08-09] MEDS: DIPHENHYDRAMINE HCL INJ 50 MG/ML VIAL IV PRN ×3 (04:15→18:52)
[2020-08-09 05:02] LABS: BASOPHILS # (AUTO) 0.1 (0.0-0.1); BASOPHILS % 0.3 % (0.0-1.0); EOSINOPHILS # (AUTO) 0.2 (0.0-0.4); EOSINOPHILS % 0.8 % (0.0-6.0); HEMATOCRIT 29.5 % (34.2-44.1); HEMOGLOBIN 9.3 g/dL (12.0-16.0); LYMPHOCYTES # (AUTO) 14.3 (1.0-3.2); LYMPHOCYTES % 51.1 % (18.0-39.1); MEAN CORPUSCULAR HEMOGLOBIN 26.2 pg (28-32); MEAN CORPUSCULAR HGB CONC 31.5 g/dL (31-35); MEAN CORPUSCULAR VOLUME 83.1 fL (81-99); MONOCYTES # (AUTO) 2.5 (0.2-0.8); MONOCYTES % 9.1 % (4.4-11.3); NEUTROPHILS # (AUTO) 10.3 (2.1-6.9); NEUTROPHILS % 36.8 % (38.7-80.0); PLATELET COUNT 511 x10e3/uL (140-360); RED BLOOD COUNT 3.55 x10e6/uL (3.6-5.1); RED CELL DISTRIBUTION WIDTH 15.2 % (11.7-14.4)
[2020-08-09 05:26] LABS: % IRON SATURATION 6 % (15-50); IRON 28 ug/dL (50-170); TOTAL IRON BINDING CAPACITY 431 ug/dL (261-478); TRANSFERRIN 308 mg/dL (180-382)
[2020-08-09] MEDS: HYDROCODONE/APAP 7.5MG-325MG 1 EA TAB PO PRN ×3 (05:43→16:19)
[2020-08-09] MEDS: CLINDAMYCIN PHOS 900MG/ 50ML 50 ML IV SCH ×3 (05:43→21:31)
[2020-08-09] MEDS: CEFEPIME HCL 1GM 1 GM in SODIUM CHLORIDE 0.9% 50ML 50 ML IV SCH ×3 (06:14→22:09)
[2020-08-09 07:25] LABS: EOSINOPHILS % (MANUAL) 1 % (0-7); LYMPHOCYTES % (MANUAL) 54 % (19-48); MONOCYTES % (MANUAL) 7 % (3.4-9.0); NEUTROPHILS % (MANUAL) 38 % (40-74); PLATELET ESTIMATE ADEQUATE; PLATELET MORPHOLOGY COMMENT NORMAL
[2020-08-09 07:26] LABS: RBC MORPHOLOGY COMMENT NORMAL
[2020-08-09] MEDS: INSULIN REGULAR, HUMAN 100 UNIT/1 ML 3ML VIAL SQ SCH ×4 (07:30→21:00)
[2020-08-09] MEDS ORDERED: HYDROMORPHONE 1MG/1ML INJ IV ONE (08:41)
[2020-08-09] MEDS: SENNA-S TABLET PO SCH ×2 (09:00→17:00)
[2020-08-09] MEDS ORDERED: MAGNESIUM HYDROXIDE 30 ML UDC PO PRN (09:00)
[2020-08-09] MEDS: FLUOXETINE HCL 20 MG CAP PO SCH (09:23)
[2020-08-09] MEDS: NICOTINE 21 MG/EA PATCH TOP SCH (09:23)
[2020-08-09] MEDS: FLUCONAZOLE 100 MG TAB PO SCH (09:24)
[2020-08-09] MEDS: FAMOTIDINE 20 MG TAB PO SCH ×2 (09:24→16:18)
[2020-08-09] MEDS: LISINOPRIL 10 MG TAB PO SCH ×2 (09:31→17:49)
[2020-08-09] MEDS: LORAZEPAM 0.5 MG TAB PO PRN ×2 (10:13→16:20)
[2020-08-09] MEDS: ONDANSETRON HCL INJ 2MG/ML 2ML 2 MG/ML VIAL IV PRN (11:12)
[2020-08-10] VITALS (10 sets, daily range): BP systolic 104–145; BP diastolic 64–88
[2020-08-10] MEDS: HYDROCODONE/APAP 7.5MG-325MG 1 EA TAB PO PRN ×2 (00:05→21:37)
[2020-08-10] MEDS: HYDROMORPHONE 1MG/1ML INJ IV PRN ×6 (02:08→20:31)
[2020-08-10] MEDS: DIPHENHYDRAMINE HCL INJ 50 MG/ML VIAL IV PRN ×4 (04:35→20:29)
[2020-08-10] MEDS: CLINDAMYCIN PHOS 900MG/ 50ML 50 ML IV SCH ×3 (05:31→22:36)
[2020-08-10] MEDS: SODIUM CHLORIDE 0.9% 1000ML 1,000 ML IV SCH ×3 (05:31→22:38)
[2020-08-10 05:52] LABS: BASOPHILS # (AUTO) 0.1 (0.0-0.1); BASOPHILS % 0.3 % (0.0-1.0); EOSINOPHILS # (AUTO) 0.5 (0.0-0.4); EOSINOPHILS % 1.7 % (0.0-6.0); HEMATOCRIT 33.4 % (34.2-44.1); HEMOGLOBIN 10.5 g/dL (12.0-16.0); LYMPHOCYTES # (AUTO) 12.7 (1.0-3.2); LYMPHOCYTES % 46.6 % (18.0-39.1); MEAN CORPUSCULAR HEMOGLOBIN 26.2 pg (28-32); MEAN CORPUSCULAR HGB CONC 31.4 g/dL (31-35); MEAN CORPUSCULAR VOLUME 83.3 fL (81-99); MONOCYTES % 7.4 % (4.4-11.3); NEUTROPHILS # (AUTO) 11.4 (2.1-6.9); NEUTROPHILS % 41.8 % (38.7-80.0); PLATELET COUNT 554 x10e3/uL (140-360); RED BLOOD COUNT 4.01 x10e6/uL (3.6-5.1); RED CELL DISTRIBUTION WIDTH 15.1 % (11.7-14.4)
[2020-08-10] MEDS: CEFEPIME HCL 1GM 1 GM in SODIUM CHLORIDE 0.9% 50ML 50 ML IV SCH ×3 (06:09→22:36)
[2020-08-10 06:22] LABS: ANION GAP 12.4 mmol/L (8-16); BLOOD UREA NITROGEN 11 mg/dL (7-26); BUN/CREATININE RATIO 16 (6-25); CALCIUM 9.3 mg/dL (8.4-10.2); CARBON DIOXIDE 28 mmol/L (22-29); CHLORIDE 100 mmol/L (98-107); CREATININE, SERUM 0.68 mg/dL (0.57-1.11); EST GLOMERULAR FILTRATION RATE > 60 ML/MIN (60-); GLUCOSE 79 mg/dL (74-118); POTASSIUM 4.4 mmol/L (3.5-5.1); SODIUM 136 mmol/L (136-145)
[2020-08-10] MEDS: LORAZEPAM 0.5 MG TAB PO PRN ×2 (07:24→20:46)
[2020-08-10] MEDS: FAMOTIDINE 20 MG TAB PO SCH ×2 (07:25→16:12)
[2020-08-10] MEDS: FLUCONAZOLE 100 MG TAB PO SCH (07:26)
[2020-08-10] MEDS: INSULIN REGULAR, HUMAN 100 UNIT/1 ML 3ML VIAL SQ SCH ×4 (07:26→20:09)
[2020-08-10] MEDS: FLUOXETINE HCL 20 MG CAP PO SCH (07:26)
[2020-08-10] MEDS: LISINOPRIL 10 MG TAB PO SCH ×2 (07:26→16:12)
[2020-08-10] MEDS: NICOTINE 21 MG/EA PATCH TOP SCH (07:27)
[2020-08-10] MEDS: SENNA-S TABLET PO SCH ×2 (07:27→16:12)
[2020-08-10] MEDS ORDERED: LIDOCAINE 1% W/EPINEPHRINE 20 ML VIAL ONE (08:07)
[2020-08-10] MEDS ORDERED: MUPIROCIN 2% OINT 22 GM TUBE ONE (09:11)
[2020-08-10 09:36] LABS: BAND NEUTROPHILS % (MANUAL) 1 %; HYPERSEGMENTED NEUTROPHILS FEW; LYMPHOCYTES % (MANUAL) 58 % (19-48); MONOCYTES % (MANUAL) 1 % (3.4-9.0); NEUTROPHILS % (MANUAL) 32 % (40-74); SMUDGE CELLS FEW
[2020-08-10 09:37] LABS: PLATELET ESTIMATE ADEQUATE; PLATELET MORPHOLOGY COMMENT NORMAL
[2020-08-10] MEDS ORDERED: HYDROMORPHONE 2MG/ML 2 MG/ML ML ONE (10:43)
[2020-08-10] MEDS ORDERED: FENTANYL CITRATE/PF 100MCG/2 ML INJ ONE (13:55)
[2020-08-10] MEDS ORDERED: MIDAZOLAM HCL 2 MG/2 ML VIAL ONE (13:55)
[2020-08-10] MEDS ORDERED: PROPOFOL IV EMULSION 10 MG/ML 20 ML VIAL ONE (14:16)
[2020-08-10] MEDS ORDERED: LIDOCAINE HCL 2% LOCAL INJ 5 ML SDV VIAL INJ ONE (14:16)
[2020-08-10] MEDS ORDERED: SEVOFLURANE INHAL SOLN 250 ML PEN BTL ONE (14:16)
[2020-08-10] MEDS ORDERED: POVIDONE IODINE 0.05% 0.05 % ML PO ONE (14:16)
[2020-08-10] MEDS: ZIPRASIDONE 20 MG VIAL IM PRN (17:40)
[2020-08-10] MEDS: ONDANSETRON HCL INJ 2MG/ML 2ML 2 MG/ML VIAL IV PRN (20:46)
[2020-08-10] MEDS ORDERED: HYDROMORPHONE 1MG/1ML INJ IV STA (21:40)
[2020-08-11] VITALS (13 sets, daily range): BP systolic 125–144; BP diastolic 63–79
[2020-08-11] MEDS: HYDROMORPHONE 1MG/1ML INJ IV PRN ×7 (01:09→22:25)
[2020-08-11] MEDS: DIPHENHYDRAMINE HCL INJ 50 MG/ML VIAL IV PRN ×3 (01:40→12:20)
[2020-08-11] MEDS: ONDANSETRON HCL INJ 2MG/ML 2ML 2 MG/ML VIAL IV PRN ×3 (01:51→22:30)
[2020-08-11] MEDS: LORAZEPAM 0.5 MG TAB PO PRN ×3 (01:51→09:15)
[2020-08-11] MEDS: HYDROCODONE/APAP 7.5MG-325MG 1 EA TAB PO PRN ×2 (01:51→05:39)
[2020-08-11 04:45] LABS: BASOPHILS # (AUTO) 0.1 (0.0-0.1); BASOPHILS % 0.2 % (0.0-1.0); EOSINOPHILS # (AUTO) 0.4 (0.0-0.4); EOSINOPHILS % 1.4 % (0.0-6.0); HEMATOCRIT 31.9 % (34.2-44.1); LYMPHOCYTES # (AUTO) 9.6 (1.0-3.2); LYMPHOCYTES % 37.4 % (18.0-39.1); MEAN CORPUSCULAR HEMOGLOBIN 26.2 pg (28-32); MEAN CORPUSCULAR HGB CONC 31.3 g/dL (31-35); MEAN CORPUSCULAR VOLUME 83.5 fL (81-99); MONOCYTES # (AUTO) 2.1 (0.2-0.8); NEUTROPHILS # (AUTO) 13.1 (2.1-6.9); NEUTROPHILS % 51.2 % (38.7-80.0); PLATELET COUNT 567 x10e3/uL (140-360); RED BLOOD COUNT 3.82 x10e6/uL (3.6-5.1); RED CELL DISTRIBUTION WIDTH 15.3 % (11.7-14.4)
[2020-08-11 05:01] LABS: ANION GAP 12.3 mmol/L (8-16); BLOOD UREA NITROGEN 15 mg/dL (7-26); BUN/CREATININE RATIO 22 (6-25); CALCIUM 8.7 mg/dL (8.4-10.2); CARBON DIOXIDE 26 mmol/L (22-29); CHLORIDE 101 mmol/L (98-107); CREATININE, SERUM 0.69 mg/dL (0.57-1.11); EST GLOMERULAR FILTRATION RATE > 60 ML/MIN (60-); GLUCOSE 113 mg/dL (74-118); POTASSIUM 4.3 mmol/L (3.5-5.1); SODIUM 135 mmol/L (136-145)
[2020-08-11] MEDS: CEFEPIME HCL 1GM 1 GM in SODIUM CHLORIDE 0.9% 50ML 50 ML IV SCH ×3 (05:38→21:52)
[2020-08-11] MEDS: CLINDAMYCIN PHOS 900MG/ 50ML 50 ML IV SCH ×3 (06:42→23:00)
[2020-08-11] MEDS: FAMOTIDINE 20 MG TAB PO SCH ×2 (07:30→16:30)
[2020-08-11] MEDS: INSULIN REGULAR, HUMAN 100 UNIT/1 ML 3ML VIAL SQ SCH ×4 (07:30→21:59)
[2020-08-11] MEDS: ZIPRASIDONE 20 MG VIAL IM PRN ×2 (08:44→17:17)
[2020-08-11] MEDS: NICOTINE 21 MG/EA PATCH TOP SCH (08:44)
[2020-08-11] MEDS: ACETAMINOPHEN 325 MG TAB PO PRN ×2 (08:48→17:18)
[2020-08-11] MEDS: SENNA-S TABLET PO SCH ×2 (09:00→17:16)
[2020-08-11] MEDS: LISINOPRIL 10 MG TAB PO SCH ×2 (09:00→17:00)
[2020-08-11] MEDS: FLUCONAZOLE 100 MG TAB PO SCH (09:00)
[2020-08-11] MEDS: FLUOXETINE HCL 20 MG CAP PO SCH (09:00)
[2020-08-11] MEDS: HYDROCODONE/APAP 7.5MG-325MG 1 EA TAB PO SCH ×3 (09:30→23:56)
[2020-08-11 09:59] LABS: EOSINOPHILS % (MANUAL) 1 % (0-7); LYMPHOCYTES % (MANUAL) 36 % (19-48); METAMYELOCYTES % (MANUAL) 2 % (0-0); MONOCYTES % (MANUAL) 7 % (3.4-9.0); NEUTROPHILS % (MANUAL) 54 % (40-74); PLATELET ESTIMATE ADEQUATE; PLATELET MORPHOLOGY COMMENT NORMAL
[2020-08-11] MEDS: GABAPENTIN 100 MG CAP PO SCH ×3 (10:00→21:59)
[2020-08-11] MEDS ORDERED: HYDROCODONE/APAP 7.5MG-325MG 1 EA TAB PO PRN (11:45)
[2020-08-11] MEDS: HYDROXYZINE HCL 25 MG TAB PO SCH ×2 (13:13→21:59)
[2020-08-11] MEDS: SODIUM CHLORIDE 0.9% 1000ML 1,000 ML IV SCH (18:02)
[2020-08-12] VITALS (18 sets, daily range): BP systolic 104–147; BP diastolic 52–113
[2020-08-12] MEDS: SODIUM CHLORIDE 0.9% 1000ML 1,000 ML IV SCH ×2 (00:06→15:26)
[2020-08-12] MEDS: DIPHENHYDRAMINE HCL INJ 50 MG/ML VIAL IV PRN ×4 (00:30→18:31)
[2020-08-12] MEDS: LORAZEPAM 0.5 MG TAB PO PRN ×3 (01:30→11:45)
[2020-08-12] MEDS: HYDROMORPHONE 1MG/1ML INJ IV PRN ×6 (03:36→21:32)
[2020-08-12] MEDS: ONDANSETRON HCL INJ 2MG/ML 2ML 2 MG/ML VIAL IV PRN ×5 (04:00→20:20)
[2020-08-12 05:36] LABS: BASOPHILS # (AUTO) 0.1 (0.0-0.1); BASOPHILS % 0.3 % (0.0-1.0); EOSINOPHILS # (AUTO) 0.4 (0.0-0.4); EOSINOPHILS % 1.5 % (0.0-6.0); HEMATOCRIT 33.8 % (34.2-44.1); HEMOGLOBIN 10.5 g/dL (12.0-16.0); LYMPHOCYTES # (AUTO) 9.4 (1.0-3.2); LYMPHOCYTES % 37.8 % (18.0-39.1); MEAN CORPUSCULAR HEMOGLOBIN 26.2 pg (28-32); MEAN CORPUSCULAR HGB CONC 31.1 g/dL (31-35); MEAN CORPUSCULAR VOLUME 84.3 fL (81-99); MONOCYTES # (AUTO) 1.9 (0.2-0.8); MONOCYTES % 7.6 % (4.4-11.3); NEUTROPHILS # (AUTO) 12.7 (2.1-6.9); NEUTROPHILS % 50.9 % (38.7-80.0); PLATELET COUNT 584 x10e3/uL (140-360); RED BLOOD COUNT 4.01 x10e6/uL (3.6-5.1); RED CELL DISTRIBUTION WIDTH 15.4 % (11.7-14.4)
[2020-08-12] MEDS: CEFEPIME HCL 1GM 1 GM in SODIUM CHLORIDE 0.9% 50ML 50 ML IV SCH (05:38)
[2020-08-12] MEDS: HYDROXYZINE HCL 25 MG TAB PO SCH ×3 (06:00→21:17)
[2020-08-12 06:10] LABS: ANION GAP 15.3 mmol/L (8-16); BLOOD UREA NITROGEN 8 mg/dL (7-26); BUN/CREATININE RATIO 11 (6-25); CARBON DIOXIDE 23 mmol/L (22-29); CHLORIDE 104 mmol/L (98-107); EST GLOMERULAR FILTRATION RATE > 60 ML/MIN (60-); GLUCOSE 103 mg/dL (74-118); POTASSIUM 4.3 mmol/L (3.5-5.1); SODIUM 138 mmol/L (136-145)
[2020-08-12] MEDS: CLINDAMYCIN PHOS 900MG/ 50ML 50 ML IV SCH (06:14)
[2020-08-12] MEDS: HYDROCODONE/APAP 7.5MG-325MG 1 EA TAB PO SCH ×3 (06:14→18:00)
[2020-08-12 06:27] LABS: MAGNESIUM 1.7 MG/DL (1.3-2.1); PHOSPHORUS 3.3 MG/DL (2.3-4.7)
[2020-08-12] MEDS: INSULIN REGULAR, HUMAN 100 UNIT/1 ML 3ML VIAL SQ SCH ×4 (07:30→20:26)
[2020-08-12] MEDS: FAMOTIDINE 20 MG TAB PO SCH ×2 (07:30→16:00)
[2020-08-12] MEDS: GABAPENTIN 100 MG CAP PO SCH ×3 (08:35→20:20)
[2020-08-12] MEDS: NICOTINE 21 MG/EA PATCH TOP SCH (08:36)
[2020-08-12] MEDS: LISINOPRIL 10 MG TAB PO SCH ×2 (08:36→17:00)
[2020-08-12] MEDS: SENNA-S TABLET PO SCH ×2 (08:36→17:00)
[2020-08-12] MEDS: FLUOXETINE HCL 20 MG CAP PO SCH (08:36)
[2020-08-12] MEDS: ZIPRASIDONE 20 MG VIAL IM PRN (08:37)
[2020-08-12] MEDS: FLUCONAZOLE 100 MG TAB PO SCH (08:37)
[2020-08-12] MEDS: ACETAMINOPHEN 325 MG TAB PO PRN (08:38)
[2020-08-12 09:09] LABS: EOSINOPHILS % (MANUAL) 1 % (0-7); LYMPHOCYTES % (MANUAL) 35 % (19-48); MONOCYTES % (MANUAL) 6 % (3.4-9.0); NEUTROPHILS % (MANUAL) 58 % (40-74)
[2020-08-12 09:10] LABS: PLATELET MORPHOLOGY COMMENT NORMAL
[2020-08-12 09:11] LABS: PLATELET ESTIMATE MARKEDLY INCREASED
[2020-08-12] MEDS ORDERED: LORAZEPAM 0.5 MG TAB ONE (11:45)
[2020-08-12] MEDS ORDERED: ONDANSETRON HCL INJ 2MG/ML 2ML 2 MG/ML VIAL ONE ×2 (11:46→15:16)
[2020-08-12] MEDS: CEFAZOLIN SOD 1 GM/NS 50ML 50 ML IV SCH ×2 (14:00→21:25)
[2020-08-12] MEDS ORDERED: HYDROXYZINE HCL 25 MG TAB ONE (15:17)
[2020-08-12] MEDS ORDERED: DIPHENHYDRAMINE HCL INJ 50 MG/ML VIAL ONE (18:35)
[2020-08-12] MEDS ORDERED: HYDROMORPHONE 1MG/1ML INJ ONE (18:35)
[2020-08-12] MEDS ORDERED: HYDROCODONE/APAP 7.5MG-325MG 1 EA TAB ONE (18:35)
[2020-08-12] MEDS ORDERED: IOPAMIDOL 370 MG/ML 200 ML INFUS..BTL INJ ONE (19:29)
[2020-08-12] MEDS ORDERED: SODIUM CHLORIDE 0.9% 50ML 50 ML ONE (19:29)
[2020-08-13] VITALS (9 sets, daily range): BP systolic 108–141; BP diastolic 61–96
[2020-08-13] MEDS: HYDROCODONE/APAP 7.5MG-325MG 1 EA TAB PO SCH ×4 (00:30→18:39)
[2020-08-13] MEDS: DIPHENHYDRAMINE HCL INJ 50 MG/ML VIAL IV PRN ×4 (00:45→18:39)
[2020-08-13] MEDS: LORAZEPAM 0.5 MG TAB PO PRN ×3 (01:41→21:44)
[2020-08-13] MEDS: HYDROMORPHONE 1MG/1ML INJ IV PRN ×6 (02:22→22:30)
[2020-08-13] MEDS: CEFAZOLIN SOD 1 GM/NS 50ML 50 ML IV SCH ×3 (05:22→21:35)
[2020-08-13] MEDS: HYDROXYZINE HCL 25 MG TAB PO SCH ×3 (05:22→21:35)
[2020-08-13 05:47] LABS: BASOPHILS # (AUTO) 0.1 (0.0-0.1); BASOPHILS % 0.3 % (0.0-1.0); EOSINOPHILS # (AUTO) 0.4 (0.0-0.4); EOSINOPHILS % 1.9 % (0.0-6.0); HEMATOCRIT 32.4 % (34.2-44.1); HEMOGLOBIN 10.1 g/dL (12.0-16.0); LYMPHOCYTES # (AUTO) 7.9 (1.0-3.2); LYMPHOCYTES % 35.1 % (18.0-39.1); MEAN CORPUSCULAR HEMOGLOBIN 26.2 pg (28-32); MEAN CORPUSCULAR HGB CONC 31.2 g/dL (31-35); MEAN CORPUSCULAR VOLUME 83.9 fL (81-99); MONOCYTES # (AUTO) 1.5 (0.2-0.8); MONOCYTES % 6.7 % (4.4-11.3); NEUTROPHILS # (AUTO) 12.2 (2.1-6.9); NEUTROPHILS % 54.4 % (38.7-80.0); PLATELET COUNT 505 x10e3/uL (140-360); RED BLOOD COUNT 3.86 x10e6/uL (3.6-5.1); RED CELL DISTRIBUTION WIDTH 15.2 % (11.7-14.4)
[2020-08-13] MEDS: SODIUM CHLORIDE 0.9% 1000ML 1,000 ML IV SCH ×2 (05:55→21:47)
[2020-08-13 06:23] LABS: ANION GAP 16.2 mmol/L (8-16); BLOOD UREA NITROGEN 10 mg/dL (7-26); BUN/CREATININE RATIO 14 (6-25); CALCIUM 9.2 mg/dL (8.4-10.2); CARBON DIOXIDE 23 mmol/L (22-29); CHLORIDE 102 mmol/L (98-107); CREATININE, SERUM 0.71 mg/dL (0.57-1.11); EST GLOMERULAR FILTRATION RATE > 60 ML/MIN (60-); GLUCOSE 90 mg/dL (74-118); POTASSIUM 4.2 mmol/L (3.5-5.1); SODIUM 137 mmol/L (136-145)
[2020-08-13] MEDS: INSULIN REGULAR, HUMAN 100 UNIT/1 ML 3ML VIAL SQ SCH ×4 (07:30→20:58)
[2020-08-13] MEDS: FAMOTIDINE 20 MG TAB PO SCH ×2 (08:15→16:30)
[2020-08-13] MEDS: GABAPENTIN 100 MG CAP PO SCH ×3 (08:30→21:35)
[2020-08-13] MEDS: NICOTINE 21 MG/EA PATCH TOP SCH (08:30)
[2020-08-13] MEDS: LISINOPRIL 10 MG TAB PO SCH ×2 (08:30→16:30)
[2020-08-13] MEDS: ONDANSETRON HCL INJ 2MG/ML 2ML 2 MG/ML VIAL IV PRN ×2 (08:30→20:30)
[2020-08-13] MEDS: SENNA-S TABLET PO SCH ×2 (08:30→17:00)
[2020-08-13] MEDS: FLUOXETINE HCL 20 MG CAP PO SCH (08:30)
[2020-08-13] MEDS: ENOXAPARIN SOD INJ 40 MG/0.4 ML SYR SC SCH (16:30)
[2020-08-14] VITALS (11 sets, daily range): BP systolic 97–137; BP diastolic 51–123
[2020-08-14] MEDS: DIPHENHYDRAMINE HCL INJ 50 MG/ML VIAL IV PRN ×5 (00:40→18:04)
[2020-08-14] MEDS: HYDROCODONE/APAP 7.5MG-325MG 1 EA TAB PO SCH ×4 (00:40→18:00)
[2020-08-14] MEDS: HYDROMORPHONE 1MG/1ML INJ IV PRN ×6 (02:16→20:42)
[2020-08-14] MEDS: CEFAZOLIN SOD 1 GM/NS 50ML 50 ML IV SCH ×3 (05:10→21:51)
[2020-08-14] MEDS: HYDROXYZINE HCL 25 MG TAB PO SCH ×3 (05:10→21:51)
[2020-08-14 05:30] LABS: BASOPHILS # (AUTO) 0.1 (0.0-0.1); BASOPHILS % 0.3 % (0.0-1.0); EOSINOPHILS # (AUTO) 0.3 (0.0-0.4); HEMATOCRIT 29.9 % (34.2-44.1); HEMOGLOBIN 9.3 g/dL (12.0-16.0); LYMPHOCYTES # (AUTO) 6.7 (1.0-3.2); LYMPHOCYTES % 40.2 % (18.0-39.1); MEAN CORPUSCULAR HGB CONC 31.1 g/dL (31-35); MEAN CORPUSCULAR VOLUME 83.5 fL (81-99); MONOCYTES # (AUTO) 1.4 (0.2-0.8); MONOCYTES % 8.3 % (4.4-11.3); NEUTROPHILS % 47.8 % (38.7-80.0); PLATELET COUNT 535 x10e3/uL (140-360); RED BLOOD COUNT 3.58 x10e6/uL (3.6-5.1); RED CELL DISTRIBUTION WIDTH 15.1 % (11.7-14.4)
[2020-08-14 05:41] LABS: ANION GAP 14.2 mmol/L (8-16); BLOOD UREA NITROGEN 11 mg/dL (7-26); BUN/CREATININE RATIO 15 (6-25); CALCIUM 9.4 mg/dL (8.4-10.2); CARBON DIOXIDE 25 mmol/L (22-29); CHLORIDE 102 mmol/L (98-107); CREATININE, SERUM 0.71 mg/dL (0.57-1.11); EST GLOMERULAR FILTRATION RATE > 60 ML/MIN (60-); GLUCOSE 108 mg/dL (74-118); POTASSIUM 4.2 mmol/L (3.5-5.1); SODIUM 137 mmol/L (136-145)
[2020-08-14] MEDS: INSULIN REGULAR, HUMAN 100 UNIT/1 ML 3ML VIAL SQ SCH ×4 (07:29→21:00)
[2020-08-14] MEDS: FAMOTIDINE 20 MG TAB PO SCH ×2 (08:19→16:56)
[2020-08-14] MEDS: GABAPENTIN 100 MG CAP PO SCH ×3 (08:19→21:51)
[2020-08-14] MEDS: NICOTINE 21 MG/EA PATCH TOP SCH (08:20)
[2020-08-14] MEDS: SENNA-S TABLET PO SCH ×2 (08:20→16:55)
[2020-08-14] MEDS: LISINOPRIL 10 MG TAB PO SCH ×2 (08:20→16:55)
[2020-08-14] MEDS: FLUOXETINE HCL 20 MG CAP PO SCH (08:20)
[2020-08-14 08:29] LABS: ANISOCYTOSIS SLIGHT; EOSINOPHILS % (MANUAL) 2 % (0-7); LYMPHOCYTES % (MANUAL) 45 % (19-48); MONOCYTES % (MANUAL) 5 % (3.4-9.0); NEUTROPHILS % (MANUAL) 47 % (40-74); PLATELET ESTIMATE MODERATELY INCREASED; PLATELET MORPHOLOGY COMMENT NORMAL; RBC MORPHOLOGY COMMENT NORMAL
[2020-08-14] MEDS: ONDANSETRON HCL INJ 2MG/ML 2ML 2 MG/ML VIAL IV PRN (09:05)
[2020-08-14] MEDS: LORAZEPAM 0.5 MG TAB PO PRN ×2 (09:05→18:04)
[2020-08-14] MEDS ORDERED: HYDROXYZINE HCL 25 MG TAB PO ONE (11:00)
[2020-08-14] MEDS ORDERED: HYDROMORPHONE 1MG/1ML INJ IV ONE (11:00)
[2020-08-14] MEDS: SODIUM CHLORIDE 0.9% 1000ML 1,000 ML IV SCH (13:51)
[2020-08-14] MEDS: ENOXAPARIN SOD INJ 40 MG/0.4 ML SYR SC SCH (16:56)
[2020-08-15] MEDS: HYDROCODONE/APAP 7.5MG-325MG 1 EA TAB PO SCH ×4 (01:15→17:06)
[2020-08-15] MEDS: DIPHENHYDRAMINE HCL INJ 50 MG/ML VIAL IV PRN ×3 (01:23→18:01)
[2020-08-15 01:27] VITALS: BP 111/79
[2020-08-15] MEDS: SODIUM CHLORIDE 0.9% 1000ML 1,000 ML IV SCH ×2 (03:50→19:49)
[2020-08-15 04:09] VITALS: BP 108/75
[2020-08-15] MEDS: HYDROMORPHONE 1MG/1ML INJ IV PRN ×7 (04:28→22:50)
[2020-08-15 05:27] VITALS: BP 114/70
[2020-08-15] MEDS: HYDROXYZINE HCL 25 MG TAB PO SCH ×3 (05:41→21:16)
[2020-08-15] MEDS: CEFAZOLIN SOD 1 GM/NS 50ML 50 ML IV SCH ×3 (05:48→21:15)
[2020-08-15] MEDS: ONDANSETRON HCL INJ 2MG/ML 2ML 2 MG/ML VIAL IV PRN ×3 (05:56→17:23)
[2020-08-15] MEDS: FAMOTIDINE 20 MG TAB PO SCH ×2 (07:30→15:50)
[2020-08-15] MEDS: INSULIN REGULAR, HUMAN 100 UNIT/1 ML 3ML VIAL SQ SCH ×4 (07:30→21:00)
[2020-08-15 08:03] VITALS: BP 115/78
[2020-08-15] MEDS: SENNA-S TABLET PO SCH ×2 (09:00→17:00)
[2020-08-15] MEDS ORDERED: ALTEPLASE RECOMBINANT 2 MG/2 ML VIAL IV ONE (09:45)
[2020-08-15] MEDS: NICOTINE 21 MG/EA PATCH TOP SCH (09:49)
[2020-08-15] MEDS: FLUOXETINE HCL 20 MG CAP PO SCH (09:49)
[2020-08-15] MEDS: GABAPENTIN 100 MG CAP PO SCH ×3 (09:49→19:49)
[2020-08-15] MEDS: LISINOPRIL 10 MG TAB PO SCH ×2 (09:57→17:00)
[2020-08-15 12:00] VITALS: BP 98/66
[2020-08-15] MEDS: LORAZEPAM 0.5 MG TAB PO PRN (17:05)
[2020-08-15] MEDS: ENOXAPARIN SOD INJ 40 MG/0.4 ML SYR SC SCH (17:06)
[2020-08-15 20:00] VITALS: BP 109/79
[2020-08-16] VITALS (9 sets, daily range): BP systolic 104–131; BP diastolic 57–82
[2020-08-16] MEDS: DIPHENHYDRAMINE HCL INJ 50 MG/ML VIAL IV PRN (00:01)
[2020-08-16] MEDS: ONDANSETRON HCL INJ 2MG/ML 2ML 2 MG/ML VIAL IV PRN ×4 (00:16→22:37)
[2020-08-16] MEDS: LORAZEPAM 0.5 MG TAB PO PRN ×2 (00:16→16:33)
[2020-08-16] MEDS: HYDROMORPHONE 1MG/1ML INJ IV PRN ×7 (03:58→22:30)
[2020-08-16] MEDS: SODIUM CHLORIDE 0.9% 1000ML 1,000 ML IV SCH (04:53)
[2020-08-16] MEDS: HYDROCODONE/APAP 7.5MG-325MG 1 EA TAB PO SCH ×4 (05:58→18:00)
[2020-08-16] MEDS: CEFAZOLIN SOD 1 GM/NS 50ML 50 ML IV SCH ×3 (05:58→22:10)
[2020-08-16] MEDS: HYDROXYZINE HCL 25 MG TAB PO SCH ×3 (05:58→22:05)
[2020-08-16] MEDS: INSULIN REGULAR, HUMAN 100 UNIT/1 ML 3ML VIAL SQ SCH ×4 (07:30→20:37)
[2020-08-16] MEDS: FAMOTIDINE 20 MG TAB PO SCH ×2 (08:00→16:34)
[2020-08-16] MEDS: SENNA-S TABLET PO SCH ×2 (09:00→17:00)
[2020-08-16] MEDS: LISINOPRIL 10 MG TAB PO SCH ×2 (09:00→17:30)
[2020-08-16] MEDS: GABAPENTIN 300 MG CAP PO SCH ×3 (09:19→20:54)
[2020-08-16] MEDS: FLUOXETINE HCL 20 MG CAP PO SCH (09:19)
[2020-08-16] MEDS: NICOTINE 21 MG/EA PATCH TOP SCH (09:19)
[2020-08-16] MEDS: DIPHENHYDRAMINE HCL 25 MG CAP PO PRN ×2 (10:05→18:23)
[2020-08-16] MEDS: ENOXAPARIN SOD INJ 40 MG/0.4 ML SYR SC SCH (17:31)
[2020-08-16] MEDS ORDERED: SODIUM CHLORIDE 0.9% 250ML 250 ML ONE (22:08)
[2020-08-17 00:10] VITALS: BP 89/54
[2020-08-17] MEDS: DIPHENHYDRAMINE HCL 25 MG CAP PO PRN ×2 (00:23→06:38)
[2020-08-17 01:27] VITALS: BP 113/74
[2020-08-17] MEDS: HYDROMORPHONE 1MG/1ML INJ IV PRN ×4 (01:32→11:05)
[2020-08-17 04:00] VITALS: BP 110/76
[2020-08-17] MEDS: HYDROCODONE/APAP 7.5MG-325MG 1 EA TAB PO SCH (05:52)
[2020-08-17] MEDS: HYDROXYZINE HCL 25 MG TAB PO SCH (05:52)
[2020-08-17] MEDS: CEFAZOLIN SOD 1 GM/NS 50ML 50 ML IV SCH (06:10)
[2020-08-17 06:17] LABS: BASOPHILS % 0.3 % (0.0-1.0); EOSINOPHILS # (AUTO) 0.6 (0.0-0.4); HEMATOCRIT 30.5 % (34.2-44.1); HEMOGLOBIN 9.6 g/dL (12.0-16.0); LYMPHOCYTES # (AUTO) 6.1 (1.0-3.2); LYMPHOCYTES % 42.8 % (18.0-39.1); MEAN CORPUSCULAR HEMOGLOBIN 26.3 pg (28-32); MEAN CORPUSCULAR HGB CONC 31.5 g/dL (31-35); MEAN CORPUSCULAR VOLUME 83.6 fL (81-99); MONOCYTES # (AUTO) 1.1 (0.2-0.8); NEUTROPHILS # (AUTO) 6.3 (2.1-6.9); NEUTROPHILS % 44.1 % (38.7-80.0); PLATELET COUNT 400 x10e3/uL (140-360); RED BLOOD COUNT 3.65 x10e6/uL (3.6-5.1); RED CELL DISTRIBUTION WIDTH 14.3 % (11.7-14.4)
[2020-08-17 06:36] LABS: ANION GAP 13.3 mmol/L (8-16); BLOOD UREA NITROGEN 10 mg/dL (7-26); BUN/CREATININE RATIO 14 (6-25); CALCIUM 9.6 mg/dL (8.4-10.2); CARBON DIOXIDE 26 mmol/L (22-29); CHLORIDE 104 mmol/L (98-107); CREATININE, SERUM 0.74 mg/dL (0.57-1.11); EST GLOMERULAR FILTRATION RATE > 60 ML/MIN (60-); GLUCOSE 95 mg/dL (74-118); POTASSIUM 4.3 mmol/L (3.5-5.1); SODIUM 139 mmol/L (136-145)
[2020-08-17] MEDS: FAMOTIDINE 20 MG TAB PO SCH (06:38)
[2020-08-17] MEDS: INSULIN REGULAR, HUMAN 100 UNIT/1 ML 3ML VIAL SQ SCH (07:30)
[2020-08-17] MEDS: LORAZEPAM 0.5 MG TAB PO PRN (07:57)
[2020-08-17] MEDS: ONDANSETRON HCL INJ 2MG/ML 2ML 2 MG/ML VIAL IV PRN (07:57)
[2020-08-17] MEDS: GABAPENTIN 300 MG CAP PO SCH (07:58)
[2020-08-17] MEDS: SENNA-S TABLET PO SCH (07:58)
[2020-08-17] MEDS: LISINOPRIL 10 MG TAB PO SCH (07:58)
[2020-08-17] MEDS: NICOTINE 21 MG/EA PATCH TOP SCH (07:58)
[2020-08-17] MEDS: FLUOXETINE HCL 20 MG CAP PO SCH (07:58)
[2020-08-17 09:08] VITALS: BP 120/62
[2020-08-17 09:09] VITALS: BP 120/62
[2020-08-17 12:38] VITALS: BP 119/79
[2020-08-18] MEDS ORDERED: LISINOPRIL 10 MG TAB PO SCH (07:30)
== END 2020-08-17 13:01 | DRG 853 ==
LOC: ER 20:17 → ERHOLD 07-31 00:59 → ICU 07-31 01:21 → IMCU 08-04 17:24 → ICU 08-10 04:47 → MED/SURG3 08-14 13:00
PROVIDERS: ADMIT Internal Medicine; ATTEND Internal Medicine
PROC: 02HV33Z Insertion of Infusion Device into Superior Vena Cava, Percutaneous Approach (ICD-10-PCS; 2020-08-01)
PROC: 0KN80ZZ Release Left Upper Arm Muscle, Open Approach (ICD-10-PCS; principal; 2020-08-06 10:00)
PROC: 02HV33Z Insertion of Infusion Device into Superior Vena Cava, Percutaneous Approach (ICD-10-PCS; 2020-08-07)
PROC: 0JR Subcutaneous Tissue and Fascia, Replacement (ICD-10-PCS; 2020-08-10)
PROC: 0JBM0ZZ Excision of Left Upper Leg Subcutaneous Tissue and Fascia, Open Approach (ICD-10-PCS; 2020-08-10)
PROC: 0JQH0ZZ Repair Left Lower Arm Subcutaneous Tissue and Fascia, Open Approach (ICD-10-PCS; 2020-08-10)
DX: A41.9 Sepsis, unspecified organism (principal); J69.0 Pneumonitis due to inhalation of food and vomit; I21.A1 Myocardial infarction type 2; J96.01 Acute respiratory failure with hypoxia; N39.0 Urinary tract infection, site not specified; T79.A12A Traumatic compartment syndrome of left upper extremity, initial encounter; N17.9 Acute kidney failure, unspecified; E87.2 Acidosis; F11.23 Opioid dependence with withdrawal; M62.82 Rhabdomyolysis; T43.621A Poisoning by amphetamines, accidental (unintentional), initial encounter; T50.991A Poisoning by other drugs, medicaments and biological substances, accidental (unintentional), initial encounter; F32.9 Major depressive disorder, single episode, unspecified; F41.9 Anxiety disorder, unspecified; Z20.822 Contact with and (suspected) exposure to COVID-19; E86.0 Dehydration; E83.51 Hypocalcemia; E87.6 Hypokalemia; E83.42 Hypomagnesemia; E83.39 Other disorders of phosphorus metabolism; E66.9 Obesity, unspecified; Z68.39 Body mass index [BMI] 39.0-39.9, adult; K71.10 Toxic liver disease with hepatic necrosis, without coma; M60.9 Myositis, unspecified
CPT/HCPCS: 36415; 36569; 70450; 71045; 71260; 80048; 80053; 80076; 80307; 80320; 80329; 81001; 81025; 82140; 82550; 82552; 82553; 82607; 82746; 82948; 83036; 83540; 83605; 83735; 84100; 84443; 84466; 84484; 85025; 87040; 87070; 87071; 87086; 87205; 88304; 88305; 93005; 93306; 93931; 93970; 96360; 96361; 96372; 97139; 97606; 99251; 99285; J0360; J0690; J0692; J0696; J1170; J1200; J1650; J1817; J2001; J2060; J2250; J2310; J2405; J2543; J2920; J2997; J3010; J3370; J3410; J3475; J3480; J3486; J7030; J7040; J7050; Q9967; U0002